=== PATIENT | male | born 1945 | race Caucasian/White ===

== ENCOUNTER 2024-11-04 14:59 | Emergency (ER) | payer MEDICARE, OTHER, SELFPAY ==
--- OUTSIDE RECORDS SUMMARY | 2003-04-27 19:00 | XMS_ITS | Continuity of Care Document ---
Author Name [facility] Address [address] [place] [address] Organization [facility] Care Team Providers Care Tool Repairer Bench Name Role Phone [facility] Unavailable Unavailable Problems Problem Status Onset Date Problem Type Date of Resolution Comments Source Malignant tumor of prostate (disorder) Active Condition Encounter for attention to colostomy Diagnosis Opioid dependence, uncomplicated Diagnosis Cutaneous abscess of abdominal wall Diagnosis Acquired absence of other genital organ(s) Diagnosis Other disorders of phosphorus metabolism Diagnosis Other chronic pain Diagnosis Hypocalcemia Diagnosis Essential (primary) hypertension Diagnosis Peritoneal adhesions (postprocedural) (postinfection) Diagnosis Attention to Colostomy Active Diagnosis Elevated Prostate Specific Antigen [psa] Active Diagnosis Malignant Neoplasm of Prostate Active Diagnosis Other Postoperative Infection Active Diagnosis 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 Diagnosis Allergies, Adverse Reactions, Alerts Substance Category Reaction Severity Reaction type Status Date Reported Comments Source azithromycin Assertion internal swelling Drug allergy Active [facility] Bee Venom Assertion Allergy to substance Active [facility] E-Mycin Assertion chest pain, A-fib Drug allergy Active [facility] No Known Latex Allergy Assertion Allergy to substance Active [facility] penicillins Assertion Swelling and rash Drug allergy Active [facility] Wasp Venom Assertion Allergy to substance Active [facility] Encounters Location Location Details Encounter Type Encounter Number Reason For Visit Attending Provider ADM Date DC Date Status Source [facility] [id number] WK F/U WITH WOUND CHECK [facility] [place] [facility] Ancillari es ALEJANDRO A[facility] OUTPATIENT [id number] WK PSA CAP S/P TUBE CH [facility] [place] [facility] ALEJANDRO ALEJANDRO OUTPATIENT [id number] MNTH [facility] [place] [facility] [id number] SIGMOIDOSC OPY:GABRIEL Renae Cancel [facility] Ancillari es ALEJANDRO ALEJANDRO OUTPATIENT [id number] 1YR WITH PSA [facility] [place] [facility] ALEJANDRO ALEJANDRO OUTPATIENT [id number] prostrate problems [facility] [place] [facility] MOO MOO [facility] OUTPATIENT [id number] SCOLIOSIS Fassil Mark [facility] M[facility] M[facility] OUTPATIENT [id number] SCOLIOSIS Fassil Mark [facility] ALEJANDRO ALEJANDRO OUTPATIENT [id number] ISSUES AND CYSTOGRAM [facility] [place] [facility] DIAGNOSTIC TEST [id number] rectovesic le fistula [facility] Pola Cancel [facility] ALEJANDRO [facility] OUTPATIENT [id number] HOSP DC F/U 4WKS W/KUB [place] [facility]LE[facility]ANDRO [facility] OUTPATIENT [id number] FOLLOW UP AFTER THE RENAE'S [facility] [place] [facility] ALEJANDRO [facility] OUTPATIENT [id number] WK Lukasz Anatone Cancel [facility] [id number] WES/ROEL CASTAÑEDAEY-0'CA RROLL; PER DR WES Car Canchang [facility] [place] Ancillari es ALEJANDRO ALEJANDRO OUTPATIENT [id number] 6WKS Lukasz Anatone Cancel [facility] DIAGNOSTIC TEST [id number] left extremity numbness and tingling Zihao Renae Cancel [facility] DIAGNOSTIC TEST [id number] left extremity numbness and tingling Zihao Renae Cancel [facility] ALEJANDRO ALEJANDRO OUTPATIENT [id number] RO ILIAC STENOSIS, NUMBNESS, TINGLING LL Gerald Alcaraz Cancel [facility] ALEJANDRO [facility] OUTPATIENT [id number] MTHS F/U [facility] [place] [facility] Procedures Procedure Code Date Perfomer Comments Source Closure of rectovesical fistula;. [id number] [facility] robotic prostatectomy 09/01/14 [facility] multiple prostate biopsies [facility] partial thyroidectomy [facility]
[2024-11-04 15:00] VITALS: BP 184/94; PULSE 61; RESP 17; TEMP 36.7; O2SAT 95; BMI 29.5
--- OUTSIDE RECORDS SUMMARY | 2024-11-04 15:08 | XMS_ITS | Encounter Summary ---
Author Organization [facility] Address [address] [place] [address] Care Team Providers Care Dough Brake Machine Operator Name Role Phone Deisy Mcfarland NP Primary Care Provider Encounter Details Date Type Department Care Team (Latest Contact Info) Description 12/17/2003 Outpatient Historical [facility] Ur[facility] Care- [facility] [place] [address] [place] [address] Vivek Gomez, DO [address] [place] [address] ACUTE PROSTATITIS (Primary Dx); ABDOMINAL PAIN UNSPEC SITE Social History Tobacco Use Types Packs/Day Years Used Date Smoking Tobacco: Never Assessed Sex and Gender Information Value Date Recorded Sex Assigned at Not on file Legal Sex Male 2:58 AM FLAMER AFTER LASTING Gender Identity Not on file Sexual Orientation Not on file documented as of this encounter Plan of Treatment Not on file documented as of this encounter Visit Diagnoses Diagnosis Acute prostatitis- Primary Abdominal pain, unspecified site documented in this encounter Additional Health Concerns Infection Onset Date Last Indicated Resolved Time MRSA Comment:Wound 09/18/14 09/20/2014 09/20/2014 10/03/2017 11:51 A M CDT E-coli-ESBL (Extended Spectr um Beta Lactamase) Comment:RESOLVED 05/26/2015 05/29/2015 10/03/2017 11:51 AM CDT documented as of this encounter Care Teams Dough Brake Machine Operator Relationship Specialty Start Date End Date Deisy Mcfarland NP [address] [place] [address] PCP - General NURSE PRACTITIONER 09/05/17 documented as of this encounter
--- OUTSIDE RECORDS SUMMARY | 2024-11-04 15:08 | XMS_ITS | Encounter Summary ---
Author Organization [facility] Address [address] [place] [address] Care Team Providers Care Lace Tearing Supervisor Name Role Phone Deisy Mcfarland NP Primary Care Provider Encounter Details Date Type Department Care Team (Late st Contact Info) Description 09/18/2017 Ancillary Orders [facility] Cardiac Thoracic Vascular S[facility] [place] [address] [place] [address] Brendan De La Torre MD NO ADDRESS ON FILE Preop examination Social History Tobacco Use Types Packs/Day Years Used Date Smoking Tobacco: Former Cigarettes Q uit: 04/28/1997 Smokeless Tobacco: Never Alcohol Use Standard Drinks/Week Comments No 0 (1 standard drink = 0.6 oz pur e alcohol) Sex and Gender Information Value Date Recorded Sex Assigned at Not on file Legal Sex Male 2:58 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 Gender Identity Not on file Sexual Orientation Not on file documented as of this encounter Plan of Treatment Not on file documented as of this encounter Visit Diagnoses Diagnosis Preop examination Preoperative examination, unspecified documented in this encounter Additional Health Concerns Infection Onset Date Last Indicated Resolved Time MRSA Comment:Wound 09/18/14 09/20/2014 09/20/2014 10/03/2017 11:51 A M CDT E-coli-ESBL (Extended Spectr um Beta Lactamase) Comment:RESOLVED 05/26/2015 05/29/2015 10/03/2017 11:51 AM CDT documented as of this encounter Care Teams Lace Tearing Supervisor Relationship Specialty Start Date End Date Deisy Mcfarland NP [address] [place] [address] PCP - General NURSE PRACTITIONER 09/05/17 documented as of this encounter
--- OUTSIDE RECORDS SUMMARY | 2024-11-04 15:08 | XMS_ITS | Encounter Summary ---
Author Organization [facility] Address [address] [place] [address] Care Team Providers Care Envelope Machine Operator Name Role Phone Deisy Mcfarland NP Primary Care Provider [phone] Encounter Details Date Type Department Care Team (Latest Contact Info) Description 09/17/2004 Outpatient Historical [facility] [address] [place] [address] Ángel Soto, DO [address] [place] [address] VISUAL DISTURBANCES NEC (Primary Dx); SPASM OF MUSCLE; ABNORMAL CLINICAL FINDING NEC Social History Tobacco Use Types Packs/Day Years Used Date Smoking Tobacco: Never Assessed Sex and Gender Information Value Date Recorded Sex Assigned at Not on file Legal Sex Male 2:58 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 SERVICE CLERK Gender Identity Not on file Sexual Orientation Not on file documented as of this encounter Plan of Treatment Not on file documented as of this encounter Visit Diagnoses Diagnosis Other specified visual disturbances- Primary Spasm of muscle Other abnormal clinical finding documented in this encounter Additional Health Concerns Infection Onset Date Last Indicated Resolved Time MRSA Comment:Wound 09/18/14 09/20/2014 09/20/2014 10/03/2017 11:51 A M CDT E-coli-ESBL (Extended Spectr um Beta Lactamase) Comment:RESOLVED 05/26/2015 05/29/2015 10/03/2017 11:51 AM CDT documented as of this encounter Care Teams Envelope Machine Operator Relationship Specialty Start Date End Date Deisy Mcfarland NP [address] [place] [address] PCP - General NURSE PRACTITIONER 09/05/17 documented as of this encounter
--- OUTSIDE RECORDS SUMMARY | 2024-11-04 15:08 | XMS_ITS | Encounter Summary ---
Author Organization [facility] Address [address] [place] [address] Care Team Providers Care Windows Desktop Support Name Role Phone Deisy Mcfarland NP Primary Care Provider Encounter Details Date Type Department Care Team (Late st Contact Info) Description 12/17/2003 Outpatient [facility] [place] [address] [place] [address] Vivek Gomez, [address] [place] [address] Social History Tobacco Use Types Packs/Day Years Used Date Smoking Tobacco: Never Assessed Sex and Gender Information Value Date Recorded Sex Assigned at Not on file Legal Sex Male 2:58 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 Gender Identity Not on file Sexual Orientation Not on file documented as of this encounter Plan of Treatment Not on file documented as of this encounter Visit Diagnoses Not on filedocumented in this encounter Additional Health Concerns Infection Onset Date Last Indicated Resolved Time MRSA Comment:Wound 09/18/14 09/20/2014 09/20/2014 10/03/2017 11:51 A M CDT E-coli-ESBL (Extended Spectr um Beta Lactamase) Comment:RESOLVED 05/26/2015 05/29/2015 10/03/2017 11:51 AM CDT documented as of this encounter Care Teams Windows Desktop Support Relationship Specialty Start Date End Date Deisy Mcfarland NP [address] [place] [address] PCP - General NURSE PRACTITIONER 09/05/17 documented as of this encounter
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
--- OUTSIDE RECORDS SUMMARY | 2024-11-04 15:08 | XMS_ITS | Encounter Summary ---
Author Organization [facility] Address [address] [place] [address] Care Team Providers Care Cracker And Cookie Machine Operator Name Role Phone Deisy Mcfarland NP Primary Care Provider Encounter Details Date Type Department Care Team (Latest Contact Info) Description 09/18/2004 Outpatient Historical [facility] [address] [place] [phone] Norbert Scherer, OD [address] [place] [address] SENILE CATARACT NOS (Primary Dx) Social History Tobacco Use Types Packs/Day Years Used Date Smoking Tobacco: Never Assessed Sex and Gender Information Value Date Recorded Sex Assigned at Not on file Legal Sex Male 2:58 AM SOFTWARE ENGINEERING ASSOCIATE MANAGER Gender Identity Not on file Sexual Orientation Not on file documented as of this encounter Plan of Treatment Not on file documented as of this encounter Visit Diagnoses Diagnosis Senile cataract, unspecified- Primary documented in this encounter Additional Health Concerns Infection Onset Date Last Indicated Resolved Time MRSA Comment:Wound 09/18/14 09/20/2014 09/20/2014 10/03/2017 11:51 A M CDT E-coli-ESBL (Extended Spectr um Beta Lactamase) Comment:RESOLVED 05/26/2015 05/29/2015 10/03/2017 11:51 AM CDT documented as of this encounter Care Teams Cracker And Cookie Machine Operator Relationship Specialty Start Date End Date Deisy Mcfarland NP [address] [place] [address] PCP - General NURSE PRACTITIONER 09/05/17 documented as of this encounter
--- OUTSIDE RECORDS SUMMARY | 2024-11-04 15:08 | XMS_ITS | Encounter Summary ---
Author Organization [facility] Address [address] [place] [address] Care Team Providers Care Wheel Polisher Name Role Phone Deisy Mcfarland NP Primary Care Provider [phone] Encounter Details Date Type Department Care Team (Late st Contact Info) Description 03/01/2011 Ancillary Orders [facility] External Dept [place] [address] [place] [address] [facility], External Provider Lower back pain; Mid back pain Social History Tobacco Use Types Packs/Day Years Used Date Smoking Tobacco: Never Assessed Sex and Gender Information Value Date Recorded Sex Assigned at Not on file Legal Sex Male 2:58 AM HEAD SCORER Gender Identity Not on file Sexual Orientation Not on file documented as of this encounter Plan of Treatment Not on file documented as of this encounter Results * XR LUMBAR SPINE 2 OR 3 VW (03/01/2011 11:20 AM CDT) Anatomical Region Laterality Modality Spine Computed Radiogr aphy 03/01/2011 10:4 2 AM CDT Impressions 03/05/2011 2:32 PM HEAD SCORER Impression: 1. Disc space narrowing at L5-S1 with associated facet joint arthropathy. 2. Scoliosis to the left of less than 10 degrees. [facility] - uploaded from [employer] - [employer]ER[employer] 03/05/2011 2:32 PM HEAD SCORER Exam: XR LUMBAR SPINE 2 OR 3 VW Date/Time of Exam: Mar 01, 2011 11:20:00 AM History: LOWER BACK PAIN. Findings: PA and lateral projections of the lumbar spine demonstrates scoliosis to the left. Scoliosis appears to be slightly less than 10 degrees. Pedicles and transverse processes appear to be intact. There is no evidence of fracture. There is disc space narrowing at the L5-S1 interspace. Procedure Note Zane Jeffers, - 03/05/2011 Exam: XR LUMBAR SPINE 2 OR 3 VW Date/Time of Exam: Mar 01, 2011 11:20:00 AM History: LOWER BACK PAIN. Findings: PA and lateral projections of the lumbar spine demonstrates scoliosis to the left. Scoliosis appears to be slightly less than 10 degrees. Pedicles and transverse processes appear to be intact. There is no evidence of fracture. There is disc space narrowing at the L5-S1 interspace. IMPRESSION Impression: 1. Disc space narrowing at L5-S1 with associated facet joint arthropathy. 2. Scoliosis to the left of less than 10 degrees. [facility] - uploaded from [employer] - External Provider sc DIAGNOSTIC IMAGING ORDERA BLES Final Result * XR THORACIC SPINE 3 VW (03/01/2011 11:20 AM CDT) Anatomical Region Laterality Modality Spine Computed Radiogr aphy 03/01/2011 10:4 2 AM CDT Impressions 03/05/2011 2:32 PM HEAD SCORER Impression: 1. Moderate scoliosis to the right. 2. No acute injury. [facility] - uploaded from [employer] - Narrative 03/05/2011 2:32 PM HEAD SCORER Exam: XR THORACIC SPINE 3 VW Date/Time of Exam: Mar 01, 2011 11:20:00 AM History: MID BACK PAIN. Findings: AP and lateral projections of the dorsal spine demonstrates scoliosis to the right of approximately 15 degrees. Paraspinal soft tissue abnormalities are not evident and there are no lytic changes. There is no evidence of acute loss in axial height of the dorsal vertebral segments. Lytic changes are not evident. Procedure Note Zane Jeffers, - 03/05/2011 Exam: XR THORACIC SPINE 3 VW Date/Time of Exam: Mar 01, 2011 11:20:00 AM History: MID BACK PAIN. Findings: AP and lateral projections of the dorsal spine demonstrates scoliosis to the right of approximately 15 degrees. Paraspinal soft tissue abnormalities are not evident and there are no lytic changes. There is no evidence of acute loss in axial height of the dorsal vertebral segments. Lytic changes are not evident. IMPRESSION Impression: 1. Moderate scoliosis to the right. 2. No acute injury. richie yola - uploaded from [employer] - External Provider [facility] DIAGNOSTIC IMAGING ORDERA BLES Final Result documented in this encounter Visit Diagnoses Diagnosis Lower back pain Lumbago Mid back pain Backache, unspecified documented in this encounter Additional Health Concerns Infection Onset Date Last Indicated Resolved Time MRSA Comment:Wound 09/18/14 09/20/2014 09/20/2014 10/03/2017 11:51 A M CDT E-coli-ESBL (Extended Spectr um Beta Lactamase) Comment:RESOLVED 05/26/2015 05/29/2015 10/03/2017 11:51 AM CDT documented as of this encounter Care Teams Wheel Polisher Relationship Specialty Start Date End Date Deisy Mcfarland NP [address] [place] [address] PCP - General NURSE PRACTITIONER 09/05/17 documented as of this encounter
--- OUTSIDE RECORDS SUMMARY | 2024-11-04 15:08 | XMS_ITS | Encounter Summary ---
Author Organization [facility] Address [address] [place] [address] Care Team Providers Care Party Plan Dealer Name Role Phone Deisy Mcfarland NP Primary Care Provider Encounter Details Date Type Department Care Team (Latest Contact Info) Description 07/24/2005 Outpatient [facility] Oral and Maxillo Surgery[address] [place] [address] Norbert Mcwilliams, PhD NO ADDRESS ON FILE Unspecified Dental Caries (Primary Dx) Social History Tobacco Use Types Packs/Day Years Used Date Smoking Tobacco: Never Assessed Sex and Gender Information Value Date Recorded Sex Assigned at Not on file Legal Sex Male 2:58 AM BODY COMPONENT ENGINEER Gender Identity Not on file Sexual Orientation Not on file documented as of this encounter Plan of Treatment Not on file documented as of this encounter Visit Diagnoses Diagnosis Unspecified dental caries- Primary documented in this encounter Additional Health Concerns Infection Onset Date Last Indicated Resolved Time MRSA Comment:Wound 09/18/14 09/20/2014 09/20/2014 10/03/2017 11:51 A M CDT E-coli-ESBL (Extended Spectr um Beta Lactamase) Comment:RESOLVED 05/26/2015 05/29/2015 10/03/2017 11:51 AM CDT documented as of this encounter Care Teams Party Plan Dealer Relationship Specialty Start Date End Date Deisy Mcfarland NP [address] [place] [address] PCP - General NURSE PRACTITIONER 09/05/17 documented as of this encounter
--- OUTSIDE RECORDS SUMMARY | 2024-11-04 15:08 | XMS_ITS | Encounter Summary ---
Author Organization [facility] Address [address] [place] [address] Care Team Providers Care Disability Insurance Hearing Officer Name Role Phone Deisy Mcfarland NP Primary Care Provider Encounter Details Date Type Department Care Team (Late st Contact Info) Description 06/29/2004 Outpatient Historical [facility] Urology- [address]tr[address], 3rd [place] [address] Brandon Navarro MD NO ADDRESS ON FILE Elevated PSA (Primary Dx) Social History Tobacco Use Types Packs/Day Years Used Date Smoking Tobacco: Never Assessed Sex and Gender Information Value Date Recorded Sex Assigned at Not on file Legal Sex Male 2:58 AM EMBALMER/FUNERAL DIRECTOR Gender Identity Not on file Sexual Orientation Not on file documented as of this encounter Plan of Treatment Not on file documented as of this encounter Visit Diagnoses Diagnosis Elevated PSA- Primary Elevated prostate specific antigen (PSA) documented in this encounter Additional Health Concerns Infection Onset Date Last Indicated Resolved Time MRSA Comment:Wound 09/18/14 09/20/2014 09/20/2014 10/03/2017 11:51 A M CDT E-coli-ESBL (Extended Spectr um Beta Lactamase) Comment:RESOLVED 05/26/2015 05/29/2015 10/03/2017 11:51 AM CDT documented as of this encounter Care Teams Disability Insurance Hearing Officer Relationship Specialty Start Date End Date Deisy Mcfarland NP [address] [place] [address] PCP - General NURSE PRACTITIONER 09/05/17 documented as of this encounter
--- OUTSIDE RECORDS SUMMARY | 2024-11-04 15:08 | XMS_ITS | Encounter Summary ---
Author Organization [facility] Address [address] [place] [address] Care Team Providers Care J2Ee Programmer Name Role Phone Deisy Mcfarland NP Primary Care Provider [phone] Encounter Details Date Type Department Care Team (Late st Contact Info) Description 12/16/2003 Outpatient Historical [facility] [address] [address] [place] [address] Brandon Navarro MD NO ADDRESS ON FILE SCREENING MAL NEOP-PROSTATE (Primary Dx) Social History Tobacco Use Types Packs/Day Years Used Date Smoking Tobacco: Never Assessed Sex and Gender Information Value Date Recorded Sex Assigned at Not on file Legal Sex Male 2:58 AM TMR TEACHER Gender Identity Not on file Sexual Orientation Not on file documented as of this encounter Plan of Treatment Not on file documented as of this encounter Visit Diagnoses Diagnosis Special screening for malignant neoplasm of prostate- Primary documented in this encounter Additional Health Concerns Infection Onset Date Last Indicated Resolved Time MRSA Comment:Wound 09/18/14 09/20/2014 09/20/2014 10/03/2017 11:51 A M CDT E-coli-ESBL (Extended Spectr um Beta Lactamase) Comment:RESOLVED 05/26/2015 05/29/2015 10/03/2017 11:51 AM CDT documented as of this encounter Care Teams J2Ee Programmer Relationship Specialty Start Date End Date Deisy Mcfarland NP [address] [place] [address] PCP - General NURSE PRACTITIONER 09/05/17 documented as of this encounter
--- OUTSIDE RECORDS SUMMARY | 2024-11-04 15:08 | XMS_ITS | Encounter Summary ---
Author Organization [facility] Address [address] [place] [address] Care Team Providers Care Logging Crew Foreman Name Role Phone Deisy Mcfarland NP Primary Care Provider [phone] Encounter Details Date Type Department Care Team (Late st Contact Info) Description 04/30/2004 Outpatient Historical [facility] Central [facility] [address] [place] [phone] Brandon Navarro MD NO ADDRESS ON FILE CHRONIC PROSTATITIS (Primary Dx) Social History Tobacco Use Types Packs/Day Years Used Date Smoking Tobacco: Never Assessed Sex and Gender Information Value Date Recorded Sex Assigned at Not on file Legal Sex Male 2:58 AM SSRS REPORT DEVELOPER Gender Identity Not on file Sexual Orientation Not on file documented as of this encounter Plan of Treatment Not on file documented as of this encounter Visit Diagnoses Diagnosis Chronic prostatitis- Primary documented in this encounter Additional Health Concerns Infection Onset Date Last Indicated Resolved Time MRSA Comment:Wound 09/18/14 09/20/2014 09/20/2014 10/03/2017 11:51 A M CDT E-coli-ESBL (Extended Spectr um Beta Lactamase) Comment:RESOLVED 05/26/2015 05/29/2015 10/03/2017 11:51 AM CDT documented as of this encounter Care Teams Logging Crew Foreman Relationship Specialty Start Date End Date Deisy Mcfarland NP [address] [place] [address] PCP - General NURSE PRACTITIONER 09/05/17 documented as of this encounter
--- OUTSIDE RECORDS SUMMARY | 2024-11-04 15:08 | XMS_ITS | Encounter Summary ---
Author Organization [facility] Address [address] [place] [address] Care Team Providers Care Machine Deicer Element Winder Name Role Phone Deisy Mcfarland NP Primary Care Provider Encounter Details Date Type Department Care Team (Latest Contact Info) Description 07/31/2005 Outpatient [facility] Oral and Maxillo Surgery[address] [place] [address] Norbert Mcwilliams, PhD NO ADDRESS ON FILE Follow-Up Examination, Following Unspecified Surgery (Primary Dx) Social History Tobacco Use Types Packs/Day Years Used Date Smoking Tobacco: Never Assessed Sex and Gender Information Value Date Recorded Sex Assigned at Not on file Legal Sex Male 2:58 AM ASSESSMENT MANAGER Gender Identity Not on file Sexual Orientation Not on file documented as of this encounter Plan of Treatment Not on file documented as of this encounter Visit Diagnoses Diagnosis Follow-up examination, following unspecified surgery- Primary documented in this encounter Additional Health Concerns Infection Onset Date Last Indicated Resolved Time MRSA Comment:Wound 09/18/14 09/20/2014 09/20/2014 10/03/2017 11:51 A M CDT E-coli-ESBL (Extended Spectr um Beta Lactamase) Comment:RESOLVED 05/26/2015 05/29/2015 10/03/2017 11:51 AM CDT documented as of this encounter Care Teams Machine Deicer Element Winder Relationship Specialty Start Date End Date Deisy Mcfarland NP [address] [place] [address] PCP - General NURSE PRACTITIONER 09/05/17 documented as of this encounter
--- OUTSIDE RECORDS SUMMARY | 2024-11-04 15:08 | XMS_ITS | Encounter Summary ---
Author Organization [facility] Address [address] [place] [address] Care Team Providers Care Snuff Grinder And Screener Name Role Phone Deisy Mcfarland NP Primary Care Provider Encounter Details Date Type Department Care Team (Late st Contact Info) Description 10/08/2005 Outpatient Historical [facility] [address] [place] [phone] Ángel Soto DO [address] [place] [phone] Esophageal Reflux (Primary Dx) Social History Tobacco Use Types Packs/Day Years Used Date Smoking Tobacco: Never Assessed Sex and Gender Information Value Date Recorded Sex Assigned at Not on file Legal Sex Male 2:58 AM DOUGH MOLDER HAND Gender Identity Not on file Sexual Orientation Not on file documented as of this encounter Plan of Treatment Not on file documented as of this encounter Visit Diagnoses Diagnosis Esophageal reflux- Primary documented in this encounter Additional Health Concerns Infection Onset Date Last Indicated Resolved Time MRSA Comment:Wound 09/18/14 09/20/2014 09/20/2014 10/03/2017 11:51 A M CDT E-coli-ESBL (Extended Spectr um Beta Lactamase) Comment:RESOLVED 05/26/2015 05/29/2015 10/03/2017 11:51 AM CDT documented as of this encounter Care Teams Snuff Grinder And Screener Relationship Specialty Start Date End Date Deisy Mcfarland NP [address] [place] [address] PCP - General NURSE PRACTITIONER 09/05/17 documented as of this encounter
--- OUTSIDE RECORDS SUMMARY | 2024-11-04 15:08 | XMS_ITS | Encounter Summary ---
Author Organization [facility] Address [address] [place] [address] Care Team Providers Care Vacuum Tester Cans Name Role Phone Deisy Mcfarland NP Primary Care Provider Encounter Details Date Type Department Care Team (Late st Contact Info) Description 02/27/2004 Outpatient Historical [facility] Urology- [address] Entrance [address], 3rd [place] [address] Brandon Navarro MD NO ADDRESS ON FILE Elevated PSA (Primary Dx); URIN TRACT INFECTION NOS Social History Tobacco Use Types Packs/Day Years Used Date Smoking Tobacco: Never Assessed Sex and Gender Information Value Date Recorded Sex Assigned at Not on file 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 Gender Identity Not on file Sexual Orientation Not on file documented as of this encounter Plan of Treatment Not on file documented as of this encounter Visit Diagnoses Diagnosis Elevated PSA- Primary Elevated prostate specific antigen (PSA) Urinary tract infection, site not specified documented in this encounter Additional Health Concerns Infection Onset Date Last Indicated Resolved Time MRSA Comment:Wound 09/18/14 09/20/2014 09/20/2014 10/03/2017 11:51 A M CDT E-coli-ESBL (Extended Spectr um Beta Lactamase) Comment:RESOLVED 05/26/2015 05/29/2015 10/03/2017 11:51 AM CDT documented as of this encounter Care Teams Vacuum Tester Cans Relationship Specialty Start Date End Date Deisy Mcfarland NP [address] [place] [address] PCP - General NURSE PRACTITIONER 09/05/17 documented as of this encounter
--- OUTSIDE RECORDS SUMMARY | 2024-11-04 15:08 | XMS_ITS | Encounter Summary ---
Author Organization [facility] Address [address] [place] [address] Care Team Providers Care Pony Worker Name Role Phone Deisy Mcfarland NP Primary Care Provider Encounter Details Date Type Department Care Team (Late st Contact Info) Description 04/30/2004 Outpatient Historical [facility] Urology- [address]tr[address], 3rd Floor [address] Brandon Navarro MD NO ADDRESS ON FILE Elevated PSA (Primary Dx) Social History Tobacco Use Types Packs/Day Years Used Date Smoking Tobacco: Never Assessed Sex and Gender Information Value Date Recorded Sex Assigned at Not on file 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
--- OUTSIDE RECORDS SUMMARY | 2024-11-04 15:08 | XMS_ITS | Encounter Summary ---
Author Organization [facility] Address [address] [place] [address] Care Team Providers Care Indirect Sales Exec Name Role Phone Deisy Mcfarland NP Primary Care Provider Encounter Details Date Type Department Care Team (Late st Contact Info) Description 12/16/2003 Outpatient Historical [facility] Urology- [address] Entr[address] B, 3rd [place] [address] Brandon Navarro MD NO ADDRESS ON FILE Elevated PSA (Primary Dx) Social History Tobacco Use Types Packs/Day Years Used Date Smoking Tobacco: Never Assessed Sex and Gender Information Value Date Recorded Sex Assigned at Not on file 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
--- OUTSIDE RECORDS SUMMARY | 2024-11-04 15:08 | XMS_ITS | Encounter Summary ---
Author Organization [facility] Address [address] [place] [address] Care Team Providers Care Pediatric Neurologist Name Role Phone Deisy Mcfarland NP Primary Care Provider [phone] Encounter Details Date Type Department Care Team (Late st Contact Info) Description 01/16/2004 Outpatient Historical [facility] Urology- [address]tr[address], 3rd [place] [address] Brandon Navarro MD NO ADDRESS ON FILE HEMATURIA (Primary Dx); URIN TRACT INFECTION NOS Social History Tobacco Use Types Packs/Day Years Used Date Smoking Tobacco: Never Assessed Sex and Gender Information Value Date Recorded Sex Assigned at Not on file 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 Gender Identity Not on file Sexual Orientation Not on file documented as of this encounter Plan of Treatment Not on file documented as of this encounter Visit Diagnoses Diagnosis Hematuria- Primary Urinary tract infection, site not specified documented in this encounter Additional Health Concerns Infection Onset Date Last Indicated Resolved Time MRSA Comment:Wound 09/18/14 09/20/2014 09/20/2014 10/03/2017 11:51 A M CDT E-coli-ESBL (Extended Spectr um Beta Lactamase) Comment:RESOLVED 05/26/2015 05/29/2015 10/03/2017 11:51 AM CDT documented as of this encounter Care Teams Pediatric Neurologist Relationship Specialty Start Date End Date Deisy Mcfarland NP [address] [place] [address] PCP - General NURSE PRACTITIONER 09/05/17 documented as of this encounter
--- OUTSIDE RECORDS SUMMARY | 2024-11-04 15:08 | XMS_ITS | Encounter Summary ---
Author Organization [facility] Address [address] [place] [address] Care Team Providers Care Pole Cutter Name Role Phone Deisy Mcfarland NP Primary Care Provider [phone] Encounter Details Date Type Department Care Team (Latest Contact Info) Description 12/17/2003 Outpatient Historical [facility] Ronnie Ranier [address] [place] [address] Vivek Gomez, DO [address] [place] [address] FEVER (Primary Dx) Social History Tobacco Use Types Packs/Day Years Used Date Smoking Tobacco: Never Assessed Sex and Gender Information Value Date Recorded Sex Assigned at Not on file 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 Gender Identity Not on file Sexual Orientation Not on file documented as of this encounter Plan of Treatment Not on file documented as of this encounter Visit Diagnoses Diagnosis Fever and other physiologic disturbances of temperature regulation- Primary documented in this encounter Additional Health Concerns Infection Onset Date Last Indicated Resolved Time MRSA Comment:Wound 09/18/14 09/20/2014 09/20/2014 10/03/2017 11:51 A M CDT E-coli-ESBL (Extended Spectr um Beta Lactamase) Comment:RESOLVED 05/26/2015 05/29/2015 10/03/2017 11:51 AM CDT documented as of this encounter Care Teams Pole Cutter Relationship Specialty Start Date End Date Deisy Mcfarland NP [address] [place] [address] PCP - General NURSE PRACTITIONER 09/05/17 documented as of this encounter
--- OUTSIDE RECORDS SUMMARY | 2024-11-04 15:08 | XMS_ITS | Encounter Summary ---
Author Organization [facility] Address [address] [place] [address] Care Team Providers Care Branding Machine Operator Name Role Phone Deisy Mcfarland NP Primary Care Provider Encounter Details Date Type Department Care Team (Latest Contact Info) Description 04/26/2005 Outpatient [facility] Oral and Maxillo Surgery[address] [place] [address] Norbert Mcwilliams, PhD NO ADDRESS ON FILE SURGERY FOLLOWUP NOS (Primary Dx) Social History Tobacco Use Types Packs/Day Years Used Date Smoking Tobacco: Never Assessed Sex and Gender Information Value Date Recorded Sex Assigned at Not on file 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
--- OUTSIDE RECORDS SUMMARY | 2024-11-04 15:08 | XMS_ITS | Encounter Summary ---
Author Organization [facility] Address [address] [place] [address] Care Team Providers Care Pumper Helper Name Role Phone Deisy Mcfarland NP Primary Care Provider Reason for Referral * Outpatient Services (Routine) - Closed Specialty Diagnoses / Procedures Referred By Contac t Referred To Contact Radiology Diagnoses Chest pain, unspecified type Procedures NM MYOCARD PERF IMAG SPECT MULT Deisy Mcfarland NP [address] [place] [address] Phone: tel: fax: [address] [address] Phone: tel: fax: Referral ID Status Reason Start Date Expiration Date Visits Re quested Visits Authorized [id number] Closed 07/28/2017 08/28/2018 3 3 * Outpatient Services (Routine) - Closed Specialty Diagnoses / Procedures Referred By Contac t Referred To Contact Radiology Diagnoses Chest pain, unspecified type Procedures STRESS TEST EXERCISE NUCLEAR MED Deisy Mcfarland NP [address] [place] [address] Phone: tel: fax: [address] [address] Phone: tel: fax: Referral ID Status Reason Start Date Expiration Date Visits Re quested Visits Authorized [id number] Closed 07/28/2017 08/28/2018 1 1 Encounter Details Date Type Department Care Team (Late st Contact Info) Description 07/28/2017 Ancillary Orders [facility] Non-Integrated Provider [address] [place] [phone] Deisy Mcfarland NP [address] [place] [address] Chest pain, unspecified type Social History Tobacco Use Types Packs/Day Years Used Date Smoking Tobacco: Former Cigarettes Q uit: 04/28/1997 Smokeless Tobacco: Never Alcohol Use Standard Drinks/Week Comments No 0 (1 standard drink = 0.6 oz pur e alcohol) Sex and Gender Information Value Date Recorded Sex Assigned at Not on file 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 Myocardial perfusion imaging is mildly abnormal. Small reversible distal lateral and apical defect, consistent with small area of ischemia. Mild mid anterior and anterolateral defect, suggestive of attenuation artifact. No obvious fixed defect is noted to suggest transmural myocardial injury. 2. Global left ventricular systolic function is low normal without segmental abnormalities and ejection fraction of 53%. 3. Nonischemic response to stress by electrocardiographic criterion with development of chest pain, fair excess tolerance with hypertension at rest and poststress. 4. No previous study is available for direct comparison. Brandan Calderon MD, [facility] This laboratory has been accredited by the Intersocietal Accreditation Commission (IAC). Narrative INTERFACE SYSTEM - 08/01/2017 2:41 PM CDT Rest/Stress One-day Single Isotope SPECT Myocardial Perfusion Imaging with Treadmill stress and Gated Ejection Fraction Clinical Indication and History: Chest pain. Hypertension. Patient is 71 inches tall and weighs 180 lb. Myocardial perfusion imaging was performed at rest (30 minutes following the intravenous injection of 10.4 mCi of Tc99m Tetrofosmin). The patient was intravenously injected with 30.3 mCi of Tc99m Tetrofosmin, 1 minute before completion of exercise. Gated post-stress tomographic imaging was performed 30 minutes after stress. Anterior planar and gated cardiac SPECT views were obtained and data reconstructed in the short, horizontal long and vertical long axis views. The patient performed treadmill exercise using a Mihc protocol, completing 6 minutes and 41 seconds and an estimated workload of 7 metabolic equivalents (METS). The heart rate was 52 beats per minute at baseline and increased to 194 beats at peak exercise, which was 130% of the maximum predicted heart rate. Blood pressure was 189/100 mmHg at rest and 200/94 mmHg at peak stress. Blood pressure response was appropriate during the stress procedure. Exercise was terminated upon maximum functional tolerance. The patient reported dyspnea and chest tightness during stress test which resolved spontaneously. The resting electrocardiogram demonstrated normal sinus rhythm right bundle branch block with inferior ST-segment changes. During stress, no significant ST-T changes were noted. There was evidence of PVC. Findings: The overall quality of the study is fair. There is evidence of soft tissue and diaphragmatic attenuation artifact. Left ventricular cavity is noted to be normal in size on the rest images without further dilatation on post stress images. SPECT images demonstrate nonhomogeneous tracer distribution and myocardial perfusion throughout the myocardium. There appears to be a small reversible distal lateral and apical defect of moderate intensity. There appears to be mild reversible mid anterior and mid anterolateral defect. Gated SPECT imaging reveals normal myocardial thickening and wall motion of all visualized segments. The left ventricular ejection fraction was calculated to be 53%, with an end-diastolic volume of 101 ml. Procedure Note Brandan Calderon MD - 08/01/2017 Rest/Stress One-day Single Isotope SPECT Myocardial Perfusion Imaging with Treadmill stress and Gated Ejection Fraction Clinical Indication and History: Chest pain. Hypertension. Patient is 71 inches tall and weighs 180 lb. Myocardial perfusion imaging was performed at rest (30 minutes following the intravenous injection of 10.4 mCi of Tc99m Tetrofosmin). The patient was intravenously injected with 30.3 mCi of Tc99m Tetrofosmin, 1 minute before completion of exercise. Gated post-stress tomographic imaging was performed 30 minutes after stress. Anterior planar and gated cardiac SPECT views were obtained and data reconstructed in the short, horizontal long and vertical long axis views. The patient performed treadmill exercise using a Mich protocol, completing 6 minutes and 41 seconds and an estimated workload of 7 metabolic equivalents (METS). The heart rate was 52 beats per minute at baseline and increased to 194 beats at peak exercise, which was 130% of the maximum predicted heart rate. Blood pressure was 189/100 mmHg at rest and 200/94 mmHg at peak stress. Blood pressure response was appropriate during the stress procedure. Exercise was terminated upon maximum functional tolerance. The patient reported dyspnea and chest tightness during stress test which resolved spontaneously. The resting electrocardiogram demonstrated normal sinus rhythm right bundle branch block with inferior ST-segment changes. During stress, no significant ST-T changes were noted. There was evidence of PVC. Findings: The overall quality of the study is fair. There is evidence of soft tissue and diaphragmatic attenuation artifact. Left ventricular cavity is noted to be normal in size on the rest images without further dilatation on post stress images. SPECT images demonstrate nonhomogeneous tracer distribution and myocardial perfusion throughout the myocardium. There appears to be a small reversible distal lateral and apical defect of moderate intensity. There appears to be mild reversible mid anterior and mid anterolateral defect. Gated SPECT imaging reveals normal myocardial thickening and wall motion of all visualized segments. The left ventricular ejection fraction was calculated to be 53%, with an end-diastolic volume of 101 ml. Impression: 1. Myocardial perfusion imaging is mildly abnormal. Small reversible distal lateral and apical defect, consistent with small area of ischemia. Mild mid anterior and anterolateral defect, suggestive of attenuation artifact. No obvious fixed defect is noted to suggest transmural myocardial injury. 2. Global left ventricular systolic function is low normal without segmental abnormalities and ejection fraction of 53%. 3. Nonischemic response to stress by electrocardiographic criterion with development of chest pain, fair excess tolerance with hypertension at rest and poststress. 4. No previous study is available for direct comparison. Brandan Calderon MD, [facility] This laboratory has been accredited by the Intersocietal Accreditation Commission (IAC). us Deisy Mcfarland NP NM ORDERABLES Final Result INTERFACE SYSTEM Refer to clinic/hospital department * STRESS TEST EXERCISE NUCLEAR MED (08/01/2017 7:46 AM CDT) 08/01/2017 7:46 AM CDT Impressions INTERFACE SYSTEM - 08/01/2017 2:41 PM CDT Impression: 1. Myocardial perfusion imaging is mildly abnormal. Small reversible distal lateral and apical defect, consistent with small area of ischemia. Mild mid anterior and anterolateral defect, suggestive of attenuation artifact. No obvious fixed defect is noted to suggest transmural myocardial injury. 2. Global left ventricular systolic function is low normal without segmental abnormalities and ejection fraction of 53%. 3. Nonischemic response to stress by electrocardiographic criterion with development of chest pain, fair excess tolerance with hypertension at rest and poststress. 4. No previous study is available for direct comparison. Brandan Calderon MD, [facility] This laboratory has been accredited by the Intersocietal Accreditation Commission (IAC). Narrative INTERFACE SYSTEM - 08/01/2017 2:41 PM CDT Rest/Stress One-day Single Isotope SPECT Myocardial Perfusion Imaging with Treadmill stress and Gated Ejection Fraction Clinical Indication and History: Chest pain. Hypertension. Patient is 71 inches tall and weighs 180 lb. Myocardial perfusion imaging was performed at rest (30 minutes following the intravenous injection of 10.4 mCi of Tc99m Tetrofosmin). The patient was intravenously injected with 30.3 mCi of Tc99m Tetrofosmin, 1 minute before completion of exercise. Gated post-stress tomographic imaging was performed 30 minutes after stress. Anterior planar and gated cardiac SPECT views were obtained and data reconstructed in the short, horizontal long and vertical long axis views. The patient performed treadmill exercise using a Mich protocol, completing 6 minutes and 41 seconds and an estimated workload of 7 metabolic equivalents (METS). The heart rate was 52 beats per minute at baseline and increased to 194 beats at peak exercise, which was 130% of the maximum predicted heart rate. Blood pressure was 189/100 mmHg at rest and 200/94 mmHg at peak stress. Blood pressure response was appropriate during the stress procedure. Exercise was terminated upon maximum functional tolerance. The patient reported dyspnea and chest tightness during stress test which resolved spontaneously. The resting electrocardiogram demonstrated normal sinus rhythm right bundle branch block with inferior ST-segment changes. During stress, no significant ST-T changes were noted. There was evidence of PVC. Findings: The overall quality of the study is fair. There is evidence of soft tissue and diaphragmatic attenuation artifact. Left ventricular cavity is noted to be normal in size on the rest images without further dilatation on post stress images. SPECT images demonstrate nonhomogeneous tracer distribution and myocardial perfusion throughout the myocardium. There appears to be a small reversible distal lateral and apical defect of moderate intensity. There appears to be mild reversible mid anterior and mid anterolateral defect. Gated SPECT imaging reveals normal myocardial thickening and wall motion of all visualized segments. The left ventricular ejection fraction was calculated to be 53%, with an end-diastolic volume of 101 ml. Procedure Note Brandan Calderon MD - 08/01/2017 Rest/Stress One-day Single Isotope SPECT Myocardial Perfusion Imaging with Treadmill stress and Gated Ejection Fraction Clinical Indication and History: Chest pain. Hypertension. Patient is 71 inches tall and weighs 180 lb. Myocardial perfusion imaging was performed at rest (30 minutes following the intravenous injection of 10.4 mCi of Tc99m Tetrofosmin). The patient was intravenously injected with 30.3 mCi of Tc99m Tetrofosmin, 1 minute before completion of exercise. Gated post-stress tomographic imaging was performed 30 minutes after stress. Anterior planar and gated cardiac SPECT views were obtained and data reconstructed in the short, horizontal long and vertical long axis views. The patient performed treadmill exercise using a Mich protocol, completing 6 minutes and 41 seconds and an estimated workload of 7 metabolic equivalents (METS). The heart rate was 52 beats per minute at baseline and increased to 194 beats at peak exercise, which was 130% of the maximum predicted heart rate. Blood pressure was 189/100 mmHg at rest and 200/94 mmHg at peak stress. Blood pressure response was appropriate during the stress procedure. Exercise was terminated upon maximum functional tolerance. The patient reported dyspnea and chest tightness during stress test which resolved spontaneously. The resting electrocardiogram demonstrated normal sinus rhythm right bundle branch block with inferior ST-segment changes. During stress, no significant ST-T changes were noted. There was evidence of PVC. Findings: The overall quality of the study is fair. There is evidence of soft tissue and diaphragmatic attenuation artifact. Left ventricular cavity is noted to be normal in size on the rest images without further dilatation on post stress images. SPECT images demonstrate nonhomogeneous tracer distribution and myocardial perfusion throughout the myocardium. There appears to be a small reversible distal lateral and apical defect of moderate intensity. There appears to be mild reversible mid anterior and mid anterolateral defect. Gated SPECT imaging reveals normal myocardial thickening and wall motion of all visualized segments. The left ventricular ejection fraction was calculated to be 53%, with an end-diastolic volume of 101 ml. Impression: 1. Myocardial perfusion imaging is mildly abnormal. Small reversible distal lateral and apical defect, consistent with small area of ischemia. Mild mid anterior and anterolateral defect, suggestive of attenuation artifact. No obvious fixed defect is noted to suggest transmural myocardial injury. 2. Global left ventricular systolic function is low normal without segmental abnormalities and ejection fraction of 53%. 3. Nonischemic response to stress by electrocardiographic criterion with development of chest pain, fair excess tolerance with hypertension at rest and poststress. 4. No previous study is available for direct comparison. Brandan Calderon MD, [facility] This laboratory has been accredited by the Intersocietal Accreditation Commission (IAC). Deisy Mcfarland NP [place] ORDERABLES Final Result INTERFACE SYSTEM Refer to clinic/hospital department documented in this encounter Visit Diagnoses Diagnosis Chest pain, unspecified type Chest pain, unspecified type Chest pain, unspecified type documented in this encounter Additional Health Concerns Infection Onset Date Last Indicated Resolved Time MRSA Comment:Wound 09/18/14 09/20/2014 09/20/2014 10/03/2017 11:51 A M CDT E-coli-ESBL (Extended Spectr um Beta Lactamase) Comment:RESOLVED 05/26/2015 05/29/2015 10/03/2017 11:51 AM CDT documented as of this encounter Care Teams Pumper Helper Relationship Specialty Start Date End Date Deisy Mcfarland NP [address] [place] [address] PCP - General NURSE PRACTITIONER 09/05/17 documented as of this encounter
--- OUTSIDE RECORDS SUMMARY | 2024-11-04 15:08 | XMS_ITS | Encounter Summary ---
Author Organization [facility] Address [address] [place] [address] Care Team Providers Care Steel Erector Name Role Phone Deisy Mcfarland NP Primary Care Provider Encounter Details Date Type Department Care Team (Late st Contact Info) Description 07/21/2017 Ancillary Orders [facility] Non-Integrated Provider [address] [place] [phone] Deisy Mcfarland, DANIS [address] [place] [address] Chest pain, unspecified type Social History Tobacco Use Types Packs/Day Years Used Date Smoking Tobacco: Former Cigarettes Q uit: 04/28/1997 Smokeless Tobacco: Never Alcohol Use Standard Drinks/Week Comments No 0 (1 standard drink = 0.6 oz pur e alcohol) Sex and Gender Information Value Date Recorded Sex Assigned at Not on file 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 Gender Identity Not on file Sexual Orientation Not on file documented as of this encounter Plan of Treatment Not on file documented as of this encounter Visit Diagnoses Diagnosis Chest pain, unspecified type documented in this encounter Additional Health Concerns Infection Onset Date Last Indicated Resolved Time MRSA Comment:Wound 09/18/14 09/20/2014 09/20/2014 10/03/2017 11:51 A M CDT E-coli-ESBL (Extended Spectr um Beta Lactamase) Comment:RESOLVED 05/26/2015 05/29/2015 10/03/2017 11:51 AM CDT documented as of this encounter Care Teams Steel Erector Relationship Specialty Start Date End Date Deisy Mcfarland NP [address] [place] [address] PCP - General NURSE PRACTITIONER 09/05/17 documented as of this encounter
--- OUTSIDE RECORDS SUMMARY | 2024-11-04 15:08 | XMS_ITS | Encounter Summary ---
Author Organization [facility] Address [address] [place] [address] Care Team Providers Care Radiology Equipment Servicer Name Role Phone Deisy Mcfarland NP Primary Care Provider Encounter Details Date Type Department Care Team (Latest Contact Info) Description 04/19/2005 Outpatient [facility] [place] [address] Norbert Mcwilliams, PhD NO ADDRESS ON FILE UNSPEC DENTAL CARIES (Primary Dx) Social History Tobacco Use Types Packs/Day Years Used Date Smoking Tobacco: Never Assessed Sex and Gender Information Value Date Recorded Sex Assigned at Not on file 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
[2024-11-04 15:33] LABS: Glucose Urine UA Negative (Normal); Nitrate Urine Negative (Negative); Specific Gravity, Urine 1.015 (1.005-1.030)
[2024-11-04 15:39] LABS: Add Urine Microscopic? YES
--- NOTE | 2024-11-04 15:48 | CTR_ITS ---
PROCEDURE INFORMATION: Exam: CT Head Without Contrast Exam date and time: 11/04/2024 4:46 PM Age: 79 years old Clinical indication: Altered mental status/memory loss; Confusion or disorientation; Additional info: Encephalopathy, altered mental status TECHNIQUE: Imaging protocol: Computed tomography of the head without contrast. Radiation optimization: All CT scans at this facility use at least one of these dose optimization techniques: automated exposure control; mA and/or kV adjustment per patient size (includes targeted exams where dose is matched to clinical indication); or iterative reconstruction. COMPARISON: No relevant prior studies available. RADIATION DOSE METRICS: Total DLP (mGy-cm): 1182.78 FINDINGS: Brain: Global brain atrophy and chronic white matter ischemic changes are present. The appearance of the brain is unchanged from the prior study. No mass lesion or hemorrhage is evident. There are no abnormal calcification seen. Cerebral ventricles: No ventriculomegaly. Paranasal sinuses: Mucous retention cyst formation in the posteroinferior left maxillary sinus is demonstrated. Mastoid air cells: Visualized mastoid air cells are well aerated. Orbital cavities: Past bilateral cataract surgery is noted. Bones: Unremarkable. No acute fracture. Soft tissues: Unremarkable. CT/CT head wo con* [id number] IMPRESSION: 1. Age-related parenchymal volume loss and microangiopathic white matter changes. 2. No evidence of intracranial hemorrhage, mass lesion, acute ischemic.
--- NOTE | 2024-11-04 15:48 | XRR_ITS ---
PROCEDURE INFORMATION: Exam: XR Chest Exam date and time: 11/04/2024 4:04 PM Age: 79 years old Clinical indication: Other: Weakness; Prior surgery; Surgery date: 6+ months; Surgery type: Open heart; HX of prostate cancer TECHNIQUE: Imaging protocol: Radiologic exam of the chest. Views: 1 view. COMPARISON: No relevant prior studies available. FINDINGS: Lungs: Unremarkable. No consolidation. Pleural spaces: Unremarkable. No pleural effusion. No pneumothorax. Heart/Mediastinum: CABG. Mild cardiomegaly. Bones/joints: Unremarkable. XR/XR chest 1V portable [id number] IMPRESSION: No acute chest pathology.
--- NOTE | 2024-11-04 16:02 | ED_ITS ---
HPI - Altered Mental Status 2 General: Chief Complaint: Altered Mental Status Stated Complaint: [facility] Time Seen by Provider: 11/04/24 15:57 History of Present Illness: 79-year-old man who presents emergency r oom from [facility] with concerns for dizziness and confusion. He does not know the date or the day but he does know his and where he is and who the president is. Ambulates with a cane. says that a few days ago he fell off of the deck. He fell again in the bathroom and laid on the ground for a while. He was seen at [place] and treated for possible vertigo. He had a CT at the time and some lab work. is concerned that he still seems confused. He is pleasant with no focal motor deficits. Blood pressure is mildly elevated. Related Data Allergies Allergy/AdvReac Type Severity Reaction Status Date / Time Penicillins Allergy Unknown Verified 11/04/24 15:12 Review of Systems 2 Narrative: Constitutional symptoms: Negative except as documented in HPI. Skin symptoms: Negative except as documented in HPI. Eye symptoms: Negative except as documented in HPI. ENMT symptoms: Negative except as documented in HPI. Respiratory symptoms: Negative except as documented in HPI. Cardiovascular symptoms: Negative except as documented in HPI. Gastrointestinal symptoms: Negative except as documented in HPI. Genitourinary symptoms: Negative except as documented in HPI. Musculoskeletal symptoms: Negative except as documented in HPI. Neurologic symptoms: Negative except as documented in HPI. Psychiatric symptoms: Negative except as documented in HPI. Endocrine symptoms: Negative except as documented in HPI. Physical Exam 2 Narrative: General: Alert, no acute distress. Skin: Warm, dry. Head: Normocephalic, atraumatic. Neck: Supple, trachea midline. Eye: Extraocular movements are intact. Ears, nose, mouth and throat: mucosa moist. Cardiovascular: Regular, Normal peripheral perfusion. Respiratory: Lungs are clear to auscultation, respirations are non-labored, breath sounds are equal, Symmetrical chest wall expansion. Gastrointestinal: Soft, Nontender, Non distended Musculoskeletal: Normal ROM, no deformity. Neurological: Alert and oriented but not to time, No focal neurological deficit observed. Psychiatric: Cooperative, appropriate mood & affect. Course 2 Vital Signs: Vital signs: Vital Signs Temperature 98.0 F 11/04/24 15:00 Pulse Rate 62 11/04/24 17:40 Respiratory Rate 17 11/04/24 15:00 Blood Pressure 198/92 11/04/24 17:40 Pulse Oximetry 95 11/04/24 17:40 Oxygen Delivery Me thod Room Air 11/04/24 17:40 MDM - Altered Mental Status Medical Decision Making Medical decision making: Differential diagnosis including but not limited to and based on the above HPI, review of systems and physical exam: In this patient with altered mental status: Stroke. Hypoglycemia. Metabolic encephalopathy. Infections such as pneumonia, urinary tract infection, Covid-19, Influenza. Electrolyte abnormalities such as hypernatremia. Renal failure / uremia. Hepatic encephalopathy. Hypoxemia. Hypercapnic respiratory failure. Psychosis. Drug or alcohol intoxication. Medication overdose. Orders placed to evaluate differential diagnosis based on the above differential, HPI and physical exam CT head: No acute intracranial process. no intracranial hemorrhage, no evidence of infarct. no evidence of acute fracture.This was reviewed and interpreted by myself the ER physician. Chest x-ray: No acute process. No infiltrate. No pneumothorax. This was reviewed and interpreted by myself the emergency room physician. I also reviewed the radiology report. Lab Review: Laboratory results were reviewed and interpreted by myself the emergency room physician. No leukocytosis. No anemia. No renal failure. Urinalysis is negative for infection. I reviewed the patient's medical record. Reexamination: Patient remained stable. No increased work of breathing. No altered mental status. No focal motor deficits. I spoke at length with the patient and his . She is unhappy that we do not have a diagnosis. I told her I believe he has a concussion. He had multiple head injuries and has vague mild confusion. He knows his name his birthday her name where he is and he is in agreements that he thinks he has a concussion. Workup is completely negative. Head CT is negative other than some age-related changes. Chest x-ray is negative for infection urinalysis is negative. No renal failure. Assessment and plan: Concussion - Discharged home - Discussed plan with patient. Answered any questions. - Evaluation and treatment of this problem were appropriate in the emergency setting. Lab Data 11/04/24 16:18 11/04/24 16:[address] 11/04/24 15:48 IMPRESSION: 1. Age-related parenchymal volume loss and microangiopathic white matter changes. 2. No evidence of intracranial hemorrhage, mass lesion, acute ischemic. Laboratory Results WBC 7.70 10^3/uL (3.29-11.43) 11/04/24 16:18 RBC 5.19 10^6/uL (3.85-5.65) 11/04/24 16:18 Hgb 16.00 g/dL (11.27-16.99) 11/04/24 16:18 Hct 47.9 % (37-53) 11/04/24 16:18 MCV 92.3 fl (82-101) 11/04/24 16:18 MCH 30.8 pg (27-33) 11/04/24 16:18 MCHC 33.4 g/dL (30-55) 11/04/24 16:18 RDW 13.0 % (12.1-15.1) 11/04/24 16:18 Plt Count 179 10^3/cmm (157-399) 11/04/24 16:18 MPV 9.9 fL (7.4-10.4) 11/04/24 16:18 Neut % (Auto) 56.2 % 11/04/24 16:18 Lymph % (Auto) 30.0 % 11/04/24 16:18 [place] % (Auto) 9.2 % 11/04/24 16:18 Eos % (Auto) 3.8 % 11/04/24 16:18 Baso % (Auto) 0.5 % 11/04/24 16:18 Neut # (Auto) 4.33 10^3/uL (1.8-7.7) 11/04/24 16:18 Lymph # (Auto) 2.3 10^3/uL (0.8-4.8) 11/04/24 16:18 [place] # (Auto) 0.7 10^3/uL (0.2-0.9) 11/04/24 16:18 Eos # (Auto) 0.3 10^3/uL (0.0-0.8) 11/04/24 16:18 Baso # (Auto) 0.0 10^3/uL (0.0-0.1) 11/04/24 16:18 Nucleated RBC % (auto) 0 % 11/04/24 16:18 Nucleated RBCs # 0.0 /100WBC 11/04/24 16:18 Sodium 139 mmol/L (136-145) 11/04/24 16:18 Potassium 3.9 mmol/L (3.5-5.1) 11/04/24 16:18 Chloride 105 mmol/L (98-107) 11/04/24 16:18 Carbon Dioxide 23 mmol/L (22-29) 11/04/24 16:18 Anion Gap 14.9 (5-19) 11/04/24 16:18 BUN 12 mg/dL (8-23) 11/04/24 16:18 Creatinine 0.7 mg/dL (0.7-1.2) 11/04/24 16:18 GFR Calculation Not Reportable 11/04/24 16:18 Glucose 84 mg/dL (65-115) 11/04/24 16:18 Calculated Osmolality 287 mOsm/kg (285-295) 11/04/24 16:18 Lactic Acid 1.1 mmol/L (0.5-2.2) 11/04/24 16:18 Calcium 8.6 mg/dL (8.5-10.5) 11/04/24 16:18 Total Bilirubin 1.0 mg/dL (0.15-1.2) 11/04/24 16:18 AST 13 U/L (0-40) 11/04/24 16:18 ALT 13 U/L (0-41) 11/04/24 16:18 Alkaline Phosphatase 99 U/L (40-130) 11/04/24 16:18 Total Protein 6.2 g/dL (6.6-8.7) L 11/04/24 16:18 Albumin 3.5 g/dL (3.5-5.2) 11/04/24 16:18 Globulin 2.7 g/dL (1.3-4.6) 11/04/24 16:18 Urine Color Yellow (Yellow) 11/04/24 15:14 Urine Appearance Clear (CLEAR) 11/04/24 15:14 Urine pH 7.5 (5-7) 11/04/24 15:14 Ur Specific [place] 1.015 (1.005-1.030) 11/04/24 15:14 Urine Protein Negative (Negative) 11/04/24 15:14 Urine Glucose (UA) Negative (Normal) 11/04/24 15:14 Urine Ketones Negative (Negative) 11/04/24 15:14 Urine Blood Negative (Negative) 11/04/24 15:14 Urine Nitrate Negative (Negative) 11/04/24 15:14 Urine Bilirubin Negative (Negative) 11/04/24 15:14 Urine Urobilinogen 1.0 mg/dL (Negative) 11/04/24 15:14 Ur Leukocyte Esterase Negative (Negative) 11/04/24 15:14 Urine RBC 0-2 /hpf (0-2) 11/04/24 15:14 Urine WBC 0-5 /hpf (0-5) 11/04/24 15:14 Ur Squamous Epith Cells 0-5 /hpf (0-5) 11/04/24 15:14 Amorphous Sediment Not Reportable 11/04/24 15:14 Urine Bacteria None seen /hpf (NONE) 11/04/24 15:14 Hyaline Casts 0-4 /lpf H 11/04/24 15:14 All radiology interpretation(s) finalized by discharge Discharge Plan Discharge Patient Disposition: Home Clinical Impression: Concussion Condition: Stable Discharge Orders: Discharge ED (Routine); Ordered 11/04/24 Ordered By: Leigh Ann Sherwood Discharge Diet: Usual diet Discharge Activity: Increase activity as tolerated Patient Instructions: Concussion (ED), Post Concussion Syndrome (ED), Altered Mental Status (ED), Opioid Safety, Pain Management, Patient Portal & Taisha Instructions Activity Restrictions/Additional Instructions: Thank you for choosing [facility] for your healthcare needs today. You have been screened and evaluated and felt safe for discharge. Health conditions do change or evolve sometimes and as such it is important that you follow up with your Primary Doctor to be re checked, 3-5 days is a general good time frame for follow up. You are always welcome to return to the ED for re assessment if your symptoms are worsening or you have new concerns Print Language: Tristanian Coding Level of Care Code ED Mitochondrial Disorders Counselor for Aristeo Wilson
[2024-11-04 16:32] LABS: Hematocrit 47.9 % (37-53); Hemoglobin 16.00 g/dL (11.27-16.99); Mean Corpuscular HGB Conc 33.4 g/dL (30-55); Mean Corpuscular Hemoglobin 30.8 pg (27-33); Mean Corpuscular Volume 92.3 fl (82-101); Nucleated Red Blood Cells % 0 %; Platelet Count 179 10^3/cmm (157-399); Red Blood Count 5.19 10^6/uL (3.85-5.65); White Blood Count 7.70 10^3/uL (3.29-11.43)
[2024-11-04 17:01] LABS: Alanine Aminotransferase 13 U/L (0-41); Albumin Level 3.5 g/dL (3.5-5.2); Alkaline Phosphatase 99 U/L (40-130); Anion Gap 14.9 (5-19); Aspartate Amino Transferase 13 U/L (0-40); Blood Urea Nitrogen 12 mg/dL (8-23); Calcium 8.6 mg/dL (8.5-10.5); Carbon Dioxide 23 mmol/L (22-29); Chloride 105 mmol/L (98-107); Creatinine Clr Calc Pharmacy 84.7196; Globulin 2.7 g/dL (1.3-4.6); Glucose 84 mg/dL (65-115); Osmolality Calculated 287 mOsm/kg (285-295); Potassium 3.9 mmol/L (3.5-5.1); Sodium 139 mmol/L (136-145); Total Protein 6.2 g/dL (6.6-8.7)
[2024-11-04 17:02] LABS: Lactic Sepsis W/Reflex 1.1 mmol/L (0.5-2.2)
[2024-11-04 17:40] VITALS: BP 198/92; PULSE 62; O2SAT 95
[2024-11-04 18:05] VITALS: BP 198/92; PULSE 51; O2SAT 94
== END 2024-11-04 18:06 | disposition home or self-care (01) ==
PROVIDERS: Emergency Provider Emergency Medicine
DX: S06.0X0A Concussion without loss of consciousness, initial encounter (principal); R29.6 Repeated falls; W17.89XA Other fall from one level to another, initial encounter
CPT/HCPCS: 36415; 70450; 71045; 80053; 81001; 83605; 85025; 87040; 99284